=== PATIENT | female | born 1980 | race Caucasian/White ===

== ENCOUNTER 2016-11-02 12:58 | Emergency (ER) | payer OTHER ==
[2016-11-02 13:14] VITALS: BMI 28.3
--- NOTE | 2016-11-02 14:36 | PDOC ---
History of Present Illness - General Chief Complaint: Muscle Cramping Stated Complaint: cramps of upper/lower ext, neck Time Seen by Provider: 11/02/16 14:31 History Source: Patient Exam Limitations: No Limitations - History of Present Illness Initial Comments: 11/02/16 14:53 36 yo female with GRAVES DZ [HYPERTHYROID] who has had A-Fib for roughly 2 years. Scheduled for an Ablation soon. The HYPERTHYROID has only been present for a few months. No Chest Pain, No Dyspnea, No Calf Swelling or tenderness to calf squeeze, No Pain with Dorsiflexion. Already on Eloquis. Has been having wierd cramps in her extremities and her neck over the past three or four days. She started researching on [employer] and became worried that she might have a blood clot and that is why she is here. Timing/Duration: 1 week Severity: mild Modifying Factors: improves with: other (none) Associated Symptoms: denies: denies symptoms Past History - Past Medical History Allergies/Adverse Reactions: Allergies Allergy/AdvReac Type Severity Reaction Status Date / Time No Known Allergies Allergy Verified 11/02/16 12:59 Home Medications: Ambulatory Orders Apixaban [Eliquis] 5 mg PO BID 11/02/16 Cyclobenzaprine HCl [Flexeril 10 mg] 10 mg PO TID PRN #30 tablet 11/02/16 Methimazole [Tapazole -] 10 mg PO DAILY 11/02/16 Propranolol HCl [Inderal] 40 mg PO ONCE 11/02/16 Cardiac Disorders: Yes (afib) Thyroid Disease: Yes (thyroid storm) - Psycho/Social/Smoking Cessation Hx Anxiety: No Suicidal Ideation: No Smoking History: Never smoked Hx Alcohol Use: No Drug/Substance Use Hx: No Substance Use Type: Alcohol Review of Systems - Review of Systems Able to Perform ROS?: Yes Is the patient limited Croatian proficient: Yes Constitutional: No: Symptoms Reported HEENTM: No: Symptoms Reported Respiratory: No: Symptoms reported Cardiac (ROS): No: Symptoms Reported ABD/GI: No: Symptoms Reported : No: Symptoms Reported Musculoskeletal: Yes: See HPI Integumentary: No: Symptoms Reported Neurological: No: Symptoms reported Psychiatric: No: Anxiety, Depression Endocrine: No: Symptoms Reported Hematologic/Lymphatic: No: Symptoms Reported All Other Systems: Reviewed and Negative *Physical Exam - Vital Signs Last Vital Signs Temp Pulse Resp BP Pulse Ox 0/0 11/02/16 12:59 - Physical Exam Comments: 11/02/16 14:58 36 yo female, comfortable, vss, nontoxic, nad HEENT - Unremarkable NECK - Supple no bruits CHEST - CTA HEART - Irregularly Irregular. Rate 60ish, No Murmur ABD - Soft and Benign EXTR - Neg calf swelling, no pain with calf squeeze, no pain with dorsiflexion bilaterally NEURO - Intact INTEG - No Rash - Good Turgor - No Bruising ED Treatment Course - LABORATORY CBC & Chemistry Diagram: 11/02/16 15:03 11/02/16 15:03 *DC/Admit/Observation/Transfer Diagnosis at time of Disposition: Muscle spasm - Discharge Dispostion Disposition: HOME Condition at time of disposition: Good Admit: No - Prescriptions Prescriptions: Cyclobenzaprine HCl [Flexeril 10 mg] 10 mg PO TID PRN #30 tablet PRN Reason: Muscle Spasms - Patient Instructions Printed Discharge Instructions: DI for Back Spasm Additional Instructions: Roseline- All of your tests were normal. Not sure why this is happening to you. Try the flexeril and follow up with your doctor on Saturday. Williams- Dr. Óscar Sandy
[2016-11-02 14:44] VITALS: BP 140/76; PULSE 60; TEMP 97.8
[2016-11-02 15:27] LABS: INR 1.27 (0.82-1.09); PH,URINE 5.5 (4.5-8); PROTHROMBIN TIME (PATIENT) 14.1 SEC (10.2-13.0); URINE APPEARANCE Cloudy; URINE BILIRUBIN Negative (NEGATIVE); URINE BLOOD Trace-lysed (NEGATIVE); URINE COLOR YELLOW; URINE GLUCOSE (UA) Negative (NEGATIVE); URINE KETONE Negative (NEGATIVE); URINE LEUK ESTERASE Negative (NEGATIVE); URINE NITRITE Negative (NEGATIVE); URINE PROTEIN Trace (NEGATIVE); URINE UROBILINOGEN 0.2 E.U/dl (0.2-1.0)
[2016-11-02 15:33] LABS: ALBUMIN 4.1 g/dl (3.5-5.0); ALK PHOS 226 U/L (32-92); ANION GAP 8 (8-16); BASOPHIL 0.4 % (0-2.0); BILIRUBIN,TOTAL 1.2 mg/dl (0.2-1.0); CALCIUM 9.3 mg/dl (8.4-10.2); CO2 25 mmol/L (22-28); CREATININE 0.6 mg/dl (0.6-1.3); EOSINOPHIL 1.1 % (0-4.5); GLUCOSE,RANDOM 87 mg/dl (74-106); MCH 27.1 pg (25.7-33.7); MEAN CELL VOLUME 82.3 fl (80-96); MEAN PLT VOLUME 9.7 fl (7.5-11.1); NEUTROPHILS 69.4 % (42.8-82.8); PLATELET COUNT 225 K/MM3 (134-434); RDW 14.6 % (11.6-15.6); SGOT/AST 18 U/L (10-42); SGPT/ALT 17 U/L (10-40); TOT PROT 7.5 g/dl (6.4-8.3); WHITE BLOOD COUNT 10.6 K/mm3 (4.0-10.8)
[2016-11-02 15:54] LABS: CPK(DFH) 251 IU/L (26-140)
[2016-11-02 16:26] LABS: TROPONIN I (DFP) < 0.03 ng/ml (0.03-0.50)
[2016-11-02 16:27] LABS: CK MB 1.9 ng/ml (0.3-4.0)
[2016-11-02 21:52] LABS: THYROID STIMULATING HORMONE < 0.01 uIU/ml (0.358-3.74)
--- NOTE | 2016-11-05 10:46 | EKG ---
Test Reason : Blood Pressure : / mmHG Vent. Rate : 054 BPM Atrial Rate : 375 BPM P-R Int : 000 ms QRS Dur : 084 ms QT Int : 424 ms P-R-T Axes : 000 099 071 degrees QTc Int : 402 ms ATRIAL FIBRILLATION WITH SLOW VENTRICULAR RESPONSE RIGHTWARD AXIS ABNORMAL ECG NO PREVIOUS ECGS AVAILABLE Confirmed by GERARDO NAZARIO, GRICELDA ([id number]) on 11/05/2016 10:45:58 AM Referred By: MD MEJIA Confirmed By:GRICELDA CARRILLO MD
== END 2016-11-02 17:16 | disposition home or self-care (01) ==
LOC: FER 12:58
DX: M62.838 Other muscle spasm (principal); I48.91 Unspecified atrial fibrillation; E05.91 Thyrotoxicosis, unspecified with thyrotoxic crisis or storm
CPT/HCPCS: 36415; 80053; 81003; 82550; 82553; 84443; 84481; 84484; 84703; 85025; 85379; 85610; 93005; 99283-25

== ENCOUNTER 2018-05-26 12:09 | Emergency (ER) | payer OTHER ==
--- NOTE | 2018-05-26 12:22 | PDOC ---
History of Present Illness - General Chief Complaint: Pain Stated Complaint: JAW PAIN Time Seen by Provider: 05/26/18 12:21 History Source: Patient Exam Limitations: No Limitations - History of Present Illness Initial Comments: 05/26/18 12:23 38 year old woman with history of Grave's disease on methimazole and afib on eliquis who presents with with several days of jaw pain that worse when eating and at night. The patient notes that it is bilateral but moves around her jaws bilaterally and feels "electricity like." The patient has had prior root canals and poor dentition due to smoking tobacco, she has had many of her molars removed. She notes that when she clenches her jaw the pain feels worse. She denies any fever, masses in the mouth, swelling of the jaw, ringing in the ear, chest pain, shortness of breath, headaches, or loss of consciousness. She denies recent travel, recent illness, N/V/D/C. She has no other complaints at bedside. PMHX: as in HPI PSHX: see below Meds: as in HPI Allergies: NKDA Tob: 1ppd for > 10 years Etoh: Rec drugs: PCP: Karen Past History - Past Medical History Allergies/Adverse Reactions: Allergies Allergy/AdvReac Type Severity Reaction Status Date / Time No Known Allergies Allergy Verified 05/26/18 12:20 Home Medications: Ambulatory Orders Apixaban [Eliquis] 5 mg PO BID 11/02/16 Methimazole [Tapazole -] 10 mg PO DAILY 11/02/16 propRANOLol HCL [Inderal] 20 mg PO BID 11/02/16 Cardiac Disorders: Yes (afib) Thyroid Disease: Yes (thyroid storm) - Suicide/Smoking/Psychosocial Hx Smoking History: Never smoked Hx Alcohol Use: No Drug/Substance Use Hx: No Substance Use Type: Alcohol Review of Systems - Review of Systems Able to Perform ROS?: Yes Is the patient limited Beninese proficient: No Constitutional: No: Chills, Diaphoresis, Fever HEENTM: Yes: See HPI, Dental Problems. No: Blurred Vision, Tearing, Recent change in vision, Ear Pain, Tinnitus, Difficulty Swallowing, Mouth Swelling Respiratory: No: Cough, Orthopnea, Shortness of Breath Cardiac (ROS): No: Chest Pain, Palpitations, Syncope ABD/GI: No: Constipated, Diarrhea, Nausea, Vomiting : No: Burning, Dysuria, Hematuria Neurological: No: Headache, Numbness, Tingling *Physical Exam - Physical Exam Comments: 05/26/18 12:24 GENERAL: Awake, alert, and fully oriented, in no acute distress HEAD: No signs of trauma, normocephalic, atraumatic EYES: PERRLA, EOMI, sclera anicteric, conjunctiva clear ENT: Auricles normal inspection, hearing grossly normal, nares patent, oropharynx clear without exudates. Moist mucosa NECK: Normal ROM, supple, no lymphadenopathy, JVD, or masses LUNGS: No distress, speaks full sentences, clear to auscultation bilaterally HEART: Regular rate and rhythm, normal S1 and S2, no murmurs, rubs or gallops, peripheral pulses normal and equal bilaterally. ABDOMEN: Soft, nontender, normoactive bowel sounds. No guarding, no rebound. No masses EXTREMITIES : Normal inspection, Normal range of motion, no edema. No clubbing or cyanosis. NEUROLOGICAL: Cranial nerves II through XII grossly intact. Normal speech, normal gait, no focal sensorimotor deficits SKIN: Warm, Dry, normal turgor, no rashes or lesions noted ED Treatment Course - LABORATORY CBC & Chemistry Diagram: 05/26/18 12:50 05/26/18 12:50 Medical Decision Making - Medical Decision Making 05/26/18 12:24 38 year old woman with history of Grave's disease on methimazole and afib on eliquis who presents with with several days of jaw pain that worse when eating and at night. The patient notes that it is bilateral but moves around her jaws bilaterally and feels "electricity like." The patient has had prior root canals and poor dentition due to smoking tobacco, she has had many of her molars removed. She notes that when she clenches her jaw the pain feels worse. She denies any fever, masses in the mouth, swelling of the jaw, ringing in the ear, chest pain, shortness of breath, headaches, or loss of consciousness. She denies recent travel, recent illness, N/V/D/C. She has no other complaints at bedside. DDX including but not limited to: dental pain vs temporal ateritis vs TMJ pain vs abscess W/U: - ekg - cbc, cmp, trop ED Course: Patient without history concerning for ACS negative troponin and unchanged EKG Likely dental pain as patient has a significant dental history, prior root canals and removal of many molars Dentition id poor but without obvious abscess or pain mass Patient with bilateral symptoms inconsistent with temporal arteritis or CN5 neuralgia/impingement TMJ possible as pt has masseter tenderness, and some clicking, however baseline otitis etiology also less likely as patient without tympanic redness or bulging. cbc, cmp, trop negative Patient stable for discharge. Informed of all lab and imaging results. Given follow up instructions and strict return precautions. Patient expressed understanding and agree to plan. *DC/Admit/Observation/Transfer Diagnosis at time of Disposition: Jaw pain - Discharge Dispostion Disposition: HOME Condition at time of disposition: Stable Decision to Admit order: No - Referrals Referrals: Brian Jones [Primary Care Provider] - - Patient Instructions Printed Discharge Instructions: Serious Ways to Stop Smoking, DI for Dental Pain Additional Instructions: In the ED you were evaluated for jaw pain. There does not appear to be an acute need for immediate hospitalization. You are advised to follow up with your Primary Care Physician within 1 week. Take over the counter pain relievers; alternate Tylenol, Motrin for pain relief. Please see your dentist within 1 week. Return to the ED immediately if you experience worsening jaw pain, fever, ringing in the ears, swelling of the jaw or mandible, pain causing inability to chew or swallow, headaches, loss of consciousness, chest pain, shortness of breath. - Post Discharge Activity Forms/Work/School Notes: Back to Work
[2018-05-26 12:27] VITALS: BP 126/83; PULSE 60; TEMP 98; BMI 26.5
[2018-05-26 13:15] LABS: HEMATOCRIT 40.8 % (32.4-45.2); HEMOGLOBIN 13.7 GM/dl (10.7-15.3); LYMPH % 34.4 % (8-40); MCH 30.9 pg (25.7-33.7); MCHC 33.6 g/dl (32.0-36.0); NEUT % 58.6 % (42.8-82.8); PLATELET COUNT 204 K/MM3 (134-434); RBC 4.44 M/mm3 (3.60-5.2); RDW 12.8 % (11.6-15.6); WHITE BLOOD COUNT 6.9 K/mm3 (4.0-10.8)
[2018-05-26 13:30] LABS: ALBUMIN 3.9 g/dl (3.5-5.0); ALK PHOS 52 U/L (32-92); ANION GAP 6 MMOL/L (8-16); BILIRUBIN,TOTAL 0.6 mg/dl (0.2-1.0); BLOOD UREA NITROGEN 12 mg/dl (7-18); CALCIUM 9.3 mg/dl (8.4-10.2); CHLORIDE 105 mmol/L (98-107); CO2 26 mmol/L (22-28); CREATININE 0.6 mg/dl (0.6-1.3); GLUCOSE,RANDOM 92 mg/dl (74-106); POTASSIUM 3.8 mmol/L (3.5-5.1); SGOT/AST 15 U/L (10-42); SGPT/ALT 14 U/L (10-40); SODIUM 137 mmol/L (136-145); TOT PROT 6.7 g/dl (6.4-8.3)
--- NOTE | 2018-05-26 13:57 | PDOC ---
Attending Attestation - Resident Resident Name: Dianna Braswell - ED Attending Attestation I have performed the following: I have examined & evaluated the patient, The case was reviewed & discussed with the resident, I agree w/resident's findings & plan, Exceptions are as noted - HPI HPI: 05/26/18 13:51 38 years old past medical history significant for Graves' disease AAugustus Vasquez presents to the ED with several history of jaw pain worse with eating worse at night nonexertional no radiation. No chest pain or shortness of breath. 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 Neck: Supple;No Nucal rigidity Chest Wall: Nontender Cardiac: Regular rate and rhythym, no murmurs, no rubs, no gallops, Lungs: Clear to auscultation bilateral, good air movement bilaterally, Abdomen: Soft, non distended, normal bowel sounds, non tender to palpation Extremities: Full range of motion to all extremities, no cyanosis, clubbing, or edema Skin: Warm and dry, no rashes or lesions, no rash, no petechiae Psych: normal mood, normal affect - Medical Decision Making 05/26/18 13:54 Jaw pain likely from poor dental dentition. No evidence of infection at this time. Heart score 1 nonischemic EKG troponin negative. No PE DVT risk factors negative by PERC criteria Findings, the need for follow-up and strict return instructions discussed with patient. Heart Score/ECG Review - History History: Slightly suspicious - Electrocardiogram EKG: Normal - Age Age: </= 45 - Risk Factors Risk Factors Heart Score: Yes Smoking History Based on the list above the patient has:: 1-2 risk factors - Troponin Troponin: </= normal limit - Score Heart Score - Total: 1 - ECG Impressions Comment:: 05/26/18 13:54 EKG performed at 1226 demonstrates normal sinus rhythm no ST elevation or T- wave inversions. Interpreted by me.
== END 2018-05-26 14:05 | disposition home or self-care (01) ==
LOC: FER 12:09
DX: R68.84 Jaw pain (principal); E05.00 Thyrotoxicosis with diffuse goiter without thyrotoxic crisis or storm; I48.91 Unspecified atrial fibrillation; F17.210 Nicotine dependence, cigarettes, uncomplicated; Z79.01 Long term (current) use of anticoagulants; E07.9 Disorder of thyroid, unspecified
CPT/HCPCS: 36415; 80053; 84484; 85025; 99282-25